=== PATIENT | male | born 2000 | race African-American/Black ===

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

== ENCOUNTER 2020-02-15 00:32 | Emergency (ER) | payer OTHER ==
[2020-02-15] MEDS ORDERED: Morphine 4 MG/ML VIAL ONE (00:49)
[2020-02-15] MEDS ORDERED: Boostrix 0.5 ML (Tdap) VIAL ONE (00:49)
[2020-02-15] MEDS ORDERED: Ondansetron PF 4 MG/2 ML Vial ONE (00:49)
[2020-02-15 01:05] LABS: #Basophils 0.1 thou/uL (0.0-0.2); #Eosinphils 0.1 thou/uL (0.0-0.7); #Lymphocytes 1.7 thou/uL (1.20-3.40); #Monocytes 0.5 thou/uL (0.11-0.59); #Neutrophils 2.7 thou/uL (1.40-6.50); %Basophils 1.8 % (0.0-1.0); %Eosinophils 1.8 % (0.0-10.0); %Lymphocytes 33.9 % (21.0-51.0); %Monocytes 9.6 % (0.0-10.0); Hemoglobin 16.2 g/dL (14.0-18.0); Mean Corpuscular HGB CONC 32.7 g/dL (32.0-36.0); Mean Corpuscular Hemoglobin 29.4 pg (27.0-31.0); Mean Platelet Volume 9.3 fL (7.4-10.4); Platelet Count 262 thou/uL (130-400); RBC Distribution Width 11.3 % (11.5-14.5); White Blood Cell (WBC) Count 5.1 thou/uL (4.8-10.8)
[2020-02-15 01:24] LABS: Prothrombin Time 13.8 sec (12.0-14.7)
[2020-02-15] MEDS ORDERED: Lidocaine 1% w/Epinephrine 1:100K 20 ML VIAL ONE (01:32)
[2020-02-15 01:33] LABS: ALT (SGPT) 13 U/L (8-55); AST (SGOT) 21 U/L (5-34); Albumin 4.5 g/dL (3.5-5.0); Alkaline Phosphatase 82 U/L (40-110); Anion Gap 17 mmol/L (10-20); BUN (Urea Nitrogen) 6 mg/dL (8.9-20.6); Bilirubin, Total 0.7 mg/dL (0.2-1.2); Calc. Creatinine Clearance 0 mL/min (70-130); Calcium 9.2 mg/dL (7.8-10.44); Carbon Dioxide 20 mmol/L (22-29); Chloride 104 mmol/L (98-107); Globulin 2.8 g/dL (2.4-3.5); Glucose 138 mg/dL (70-105); Potassium 3.4 mmol/L (3.5-5.1); Protein, Total 7.3 g/dL (6.0-8.3); Sodium 138 mmol/L (136-145)
[2020-02-15] MEDS ORDERED: Bacitracin 1 PK ONE (02:32)
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
== END 2020-02-15 03:00 | disposition home or self-care (01) ==
LOC: MADERS 00:32
DX: S62.335A Displaced fracture of neck of fourth metacarpal bone, left hand, initial encounter for closed fracture (principal); S51.011A Laceration without foreign body of right elbow, initial encounter; S01.01XA Laceration without foreign body of scalp, initial encounter; F17.210 Nicotine dependence, cigarettes, uncomplicated; V86.96XA Unspecified occupant of dirt bike or motor/cross bike injured in nontraffic accident, initial encounter
CPT/HCPCS: 12002; 26605; 70450; 71045; 72125; 80053; 85025; 85610; 90471; 90715; 96374; 96375; J2270; J2405

== ENCOUNTER 2023-08-18 22:28 | Emergency (ER) | payer OTHER ==
[2023-08-18] MEDS ORDERED: Lidocaine 1% w/Epinephrine 1:100K 20 ML VIAL ONE (23:45)
[2023-08-18] MEDS ORDERED: Lidocaine 4% Cream 5 GM TUBE w/ Tegaderm ONE (23:45)
[2023-08-19] MEDS ORDERED: Cephalexin 500 MG CAP ONE (00:11)
[2023-08-19] MEDS ORDERED: Bacitracin 1 PK ONE (00:11)
[2023-08-19] MEDS ORDERED: Doxycycline 100 MG CAP ONE (00:11)
[2023-08-19] MEDS ORDERED: Ibuprofen 800 MG TAB ONE (00:55)
== END 2023-08-19 01:00 | disposition home or self-care (01) ==
LOC: MADERS 22:28
DX: M65.0 Abscess of tendon sheath (principal); Z87.891 Personal history of nicotine dependence
CPT/HCPCS: 10060; 87070; 87205

== ENCOUNTER 2023-08-22 01:13 | Emergency (ER) | payer OTHER | END 2023-08-22 02:03 | disposition home or self-care (01) | LOC: MADERS 01:13 | DX: Z48.00 Encounter for change or removal of nonsurgical wound dressing (principal) | CPT/HCPCS: 99282 ==